=== PATIENT | male | born 1950 | race Caucasian/White ===

== ENCOUNTER → 2017-05-30 | Outpatient (CLI) | payer MEDICARE, BC ==
[~2017-05-30] VITALS: Ht 182.9 cm; Wt 179.2 kg
[2017-05-30] VITALS (9 sets, daily range): BP systolic 102–117; BP diastolic 38–62
[~2017-05-30] MED LIST: BENA20TA2 PO; CELE200C PO; CITA40TA11 PO; FURO-150 PO; METF500T4 PO; OMEP20CA10 PO; ROSU10TA PO; TAMS0.4C32 PO; aminophylline 250mg/10ml inj. IV PRN; nitroGLYCERIN 0.4mg SUBLingual tab SL PRN; normal saline 500ml IV soln 500 ML IV ONE; regadenoson 0.4mg/5ml syringe IV ONE
== END ==
LOC: RAD 10:13
PROVIDERS: ATTEND Internal Medicine Cardiovascular Disease
DX: I51.7 Cardiomegaly (principal); R07.9 Chest pain, unspecified
CPT/HCPCS: 78452; 93017; A9500; J7030

== ENCOUNTER 2018-07-16 12:38 | Outpatient (CLI) | payer MEDICARE, BC ==
[~2018-07-16 12:38] MED LIST changes: +METF-436 PO; -METF500T4 PO; -OMEP20CA10 PO; +OMEP20CA11 PO; -ROSU10TA PO; +ROSU10TA2 PO; -aminophylline 250mg/10ml inj. IV PRN; -nitroGLYCERIN 0.4mg SUBLingual tab SL PRN; -normal saline 500ml IV soln 500 ML IV ONE; -regadenoson 0.4mg/5ml syringe IV ONE
== END 2018-07-16 23:59 | disposition home or self-care (01) ==
LOC: CARD DIAG 12:38
PROVIDERS: ATTEND Internal Medicine Cardiovascular Disease
DX: I34.0 Nonrheumatic mitral (valve) insufficiency (principal); R00.0 Tachycardia, unspecified; R00.1 Bradycardia, unspecified; I10 Essential (primary) hypertension
CPT/HCPCS: 93306

== ENCOUNTER 2023-04-28 15:45 | Emergency (ER) | payer MEDICARE, BC ==
[~2023-04-28] VITALS: Ht 180.3 cm; Wt 146.6 kg
[~2023-04-28 15:45] MED LIST changes: +CITA-119 PO; -CITA40TA11 PO; -OMEP20CA11 PO; +OMEP20CA15 PO
[2023-04-28 16:02] VITALS: TEMP 98.6
[2023-04-28] MEDS ORDERED: ibuprofen tablet 400 MG TABLET PO ONE (17:35)
[2023-04-28 18:44] LABS: BASOPHILS # (AUTO) 0.1 X10'3 (0-0.2); BASOPHILS % (AUTO) 1.6 % (0-1); EOSINOPHILS # (AUTO) 0.2 X10'3 (0-0.9); EOSINOPHILS % (AUTO) 2.2 % (0-6); HEMATOCRIT 44.3 % (42.0-52.0); LYMPHOCYTES # (AUTO) 1.2 X10'3 (1.1-4.8); LYMPHOCYTES % (AUTO) 16.9 % (21-51); MEAN CORPUSCULAR HEMOGLOBIN 32.3 PG (27.0-31.0); MEAN CORPUSCULAR HGB CONC 33.8 g/dL (33.0-36.5); MEAN CORPUSCULAR VOLUME 95.8 FL (78-98); MEAN PLATELET VOLUME 7.8 FL (7.4-10.4); MONOCYTES # (AUTO) 0.5 X10'3 (0-0.9); MONOCYTES % (AUTO) 7.5 % (2-12); NEUTROPHILS # (AUTO) 4.9 X10'3 (1.8-7.7); NEUTROPHILS % (AUTO) 71.8 % (42-75); PLATELET COUNT 196 X10'3 (140-440); RED BLOOD COUNT 4.63 X10'6 (4.70-6.10); WHITE BLOOD COUNT 6.9 X10'3 (4.5-11.0)
[2023-04-28] MEDS: acetaminophen 325mg tablet PO ONE (19:00)
[2023-04-28 19:03] LABS: APTT 32 SECONDS (22-32)
[2023-04-28 19:07] LABS: ALBUMIN 3.4 G/DL (3.4-5.0); ANION GAP 6 (8-16); BLOOD UREA NITROGEN 34 MG/DL (7-18); BUN/CREATININE RATIO 20.6 (10.0-20.0); C-REACTIVE PROTEIN 6.83 MG/DL (0.0-0.5); CALCIUM 8.7 MG/DL (8.5-10.1); CHLORIDE 104 MMOL/L (99-107); CREATININE 1.65 MG/DL (0.60-1.10); GLUCOSE 146 MG/DL (70-104); MAGNESIUM 2.1 MG/DL (1.5-2.4); POTASSIUM 4.5 MMOL/L (3.5-5.1); PRO BRAIN NATRIURETIC PEPTIDE 104 PG/ML (0-450); SODIUM 136 MMOL/L (135-145); TOTAL CARBON DIOXIDE 25.9 MMOL/L (24-32); eCRCL 41 ML/MIN; eGFR 41 ML/MIN
[2023-04-28] MEDS ORDERED: APIX5TAB3 PO (19:35)
[2023-04-28 19:36] VITALS: BP 137/50; PULSE 68; RESP 16; O2SAT 96
[2023-04-28] MEDS: apixaban 5mg tablet PO ONE (19:45)
== END 2023-04-28 19:50 | disposition home or self-care (01) ==
LOC: ER 15:45
DX: I82.402 Acute embolism and thrombosis of unspecified deep veins of left lower extremity (principal); E78.00 Pure hypercholesterolemia, unspecified; I12.9 Hypertensive chronic kidney disease with stage 1 through stage 4 chronic kidney disease, or unspecified chronic kidney disease; N18.9 Chronic kidney disease, unspecified; E11.22 Type 2 diabetes mellitus with diabetic chronic kidney disease; Z88.0 Allergy status to penicillin; Z79.899 Other long term (current) drug therapy
CPT/HCPCS: 36415; 71045; 80048; 83605; 83735; 83880; 84145; 84484; 85025; 85379; 85610; 85651; 85730; 86140; 87040; 93005; 93971; 99285